=== PATIENT | female | born 1970 | race Caucasian/White ===

== ENCOUNTER 2023-07-16 06:23 | Inpatient (IN) | payer OTHER ==
[~2023-07-16] VITALS: Ht 167.6 cm; Wt 90.7 kg
[2023-07-16] MEDS ORDERED: ceFAZolin 2,000 MG VIAL ONE (07:32)
[2023-07-16 07:43] LABS: BASOPHILS # (AUTO) 0.1 K/uL (0.00-0.22); BASOPHILS % (AUTO) 1.2 % (0.0-2.0); EOSINOPHILS # (AUTO) 0.2 K/uL (0-0.4); HEMATOCRIT 40.5 % (36-48); HEMOGLOBIN 13.7 g/dL (12.0-16.0); LYMPHOCYTES % (AUTO) 44.7 % (20.5-51.1); MEAN CORPUSCULAR HEMOGLOBIN 32 pg (27-31); MEAN CORPUSCULAR HGB CONC 34 g/dL (33-37); MEAN CORPUSCULAR VOLUME 93.2 fL (80-94); MONOCYTES # (AUTO) 0.3 K/uL (0.8-1.0); NEUTROPHILS % (AUTO) 43.1 % (42.2-75.2); PLATELET COUNT (AUTO) 245 K/uL (140-450); RED BLOOD CELL COUNT(AUTO) 4.35 MIL/uL (4.20-5.40); RED CELL DISTRIBUTION WIDTH 13.6 % (11.6-13.7); WHITE BLOOD COUNT (AUTO) 4.6 K/uL (4.8-10.8)
[2023-07-16 07:57] LABS: ALBUMIN 3.7 g/dL (3.4-5.0); ANION GAP 10.5 (8-16); CALCIUM 8.4 mg/dL (8.5-10.1); CREATININE 0.7 mg/dL (0.6-1.3); POTASSIUM 3.5 mmol/L (3.5-5.1); TOTAL BILIRUBIN 0.5 mg/dL (0.0-1.0); TOTAL PROTEIN, SERUM 7.4 g/dL (6.4-8.2)
[2023-07-16] MEDS ORDERED: ceFAZolin 2,000 MG VIAL IVP ONE (08:00)
[2023-07-16] MEDS ORDERED: DESFLURANE 240 ML BTL INH ONE (08:03)
[2023-07-16] MEDS ORDERED: fentaNYL citrate 0.05 MG/ML VIAL ONE (08:04)
[2023-07-16] MEDS ORDERED: ONDANSETRON 4 MG/2 ML VIAL ONE (08:43)
[2023-07-16] MEDS ORDERED: SUCCINYLCHOLINE CHLORIDE 200 MG/10 ML VIAL IVP ONE (08:43)
[2023-07-16] MEDS ORDERED: KETOROLAC 30 MG/ML VIAL ONE (08:43)
[2023-07-16] MEDS ORDERED: PROPOFOL 200 MG/20 ML VIAL IV ONE (08:43)
[2023-07-16] MEDS ORDERED: ROCURONIUM 50 MG/5 ML VIAL IV ONE (08:43)
[2023-07-16] MEDS ORDERED: LACTATED RINGERS 1,000 ML IV SCH (09:00)
[2023-07-16] MEDS ORDERED: MORPHINE SULFATE 4 MG/ML SYR IVP PRN (09:30)
[2023-07-16] MEDS ORDERED: NEOSTIGMINE 1:1000 10 MG/10 ML VIAL ONE (10:03)
[2023-07-16] MEDS ORDERED: GLYCOPYRROLATE 0.2 MG/ML VIAL ONE ×5 (10:04)
[2023-07-16] MEDS: HYDROmorphone 1 MG/ML AMP IVP PRN ×4 (10:12→10:58)
[2023-07-16] MEDS: LACTATED RINGERS 1,000 ML IV SCH (10:15)
[2023-07-16] MEDS ORDERED: METOCLOPRAMIDE 10 MG/2 ML INJ VIAL IVP PRN (10:15)
[2023-07-16] MEDS ORDERED: hydrALAZINE 20 MG/ML VIAL IVP PRN (10:16)
[2023-07-16] MEDS ORDERED: HYDROmorphone PFS 2 MG/ML SYR ONE (10:16)
[2023-07-16] MEDS ORDERED: LABETALOL 20 MG/4 ML VIAL IVP PRN (10:16)
[2023-07-16] MEDS: KETOROLAC 30 MG/ML VIAL IVP SCH ×3 (12:00→17:45)
[2023-07-16 12:05] VITALS: BP 114/53; PULSE 50; RESP 18; TEMP 97; O2SAT 99
[2023-07-16 12:26] VITALS: PULSE 50; RESP 18; O2SAT 99
[2023-07-16 16:33] VITALS: BP 110/53; PULSE 52; RESP 18; TEMP 97.6; O2SAT 99
[2023-07-16 20:00] VITALS: BP 110/53; PULSE 55; RESP 20; TEMP 97.6; O2SAT 99
[2023-07-17] MEDS: LACTATED RINGERS 1,000 ML IV SCH ×3 (00:36→16:22)
[2023-07-17 04:00] VITALS: BP 122/63; PULSE 62; RESP 18; TEMP 98.1; O2SAT 96
[2023-07-17] MEDS: KETOROLAC 30 MG/ML VIAL IVP SCH ×5 (06:55→23:13)
[2023-07-17 08:47] VITALS: BP 115/50; PULSE 57; RESP 18; TEMP 98.3; O2SAT 96
[2023-07-17 08:48] VITALS: PULSE 57; RESP 18; O2SAT 96
[2023-07-17] MEDS ORDERED: oxyCODONE/APAP 5/325 MG 1 TAB TAB PO PRN ×2 (09:25→19:50)
[2023-07-17 20:00] VITALS: BP 118/63; PULSE 73; RESP 18; TEMP 97.5; O2SAT 93
[2023-07-18] MEDS: LACTATED RINGERS 1,000 ML IV SCH (02:02)
[2023-07-18 04:00] VITALS: BP 113/59; PULSE 60; RESP 18; TEMP 97.9; O2SAT 96
[2023-07-18] MEDS: KETOROLAC 30 MG/ML VIAL IVP SCH ×2 (05:54→12:39)
[2023-07-18] MEDS ORDERED: oxyCODONE/APAP 5/325 MG 1 TAB TAB PO PRN (09:10)
[2023-07-18 11:01] VITALS: BP 125/78; PULSE 62; RESP 18; TEMP 96.8
[2023-07-18] MEDS ORDERED: OMEP20EC11 PO (11:31)
== END 2023-07-18 16:08 | disposition home or self-care (01) | DRG 743 ==
LOC: MOR 06:23 → MMU 06:50 → MTU 08:16 → MOR 08:17 → MTU 08:18
PROVIDERS: ADMIT Obstetrics & Gynecology; ATTEND Obstetrics & Gynecology
PROC: 0UT20ZZ Resection of Bilateral Ovaries, Open Approach (ICD-10-PCS; 2023-07-16)
PROC: 0UT70ZZ Resection of Bilateral Fallopian Tubes, Open Approach (ICD-10-PCS; 2023-07-16)
PROC: 0UT90ZZ Resection of Uterus, Open Approach (ICD-10-PCS; principal; 2023-07-16 07:30)
DX: D25.9 Leiomyoma of uterus, unspecified (principal); N85.2 Hypertrophy of uterus; Z88.5 Allergy status to narcotic agent
CPT/HCPCS: 36415; 80053; 85025; 86886; 86900; 86901; 87081; 93005; J0330; J1170; J1885; J2405; J2704; J2710; J3010; J3490